=== PATIENT | female | born 1960 ===

== ENCOUNTER 2018-08-28 11:36 | Emergency (ER) | payer SELFPAY ==
[2018-08-28 11:39] VITALS: RESP 18
--- NOTE | 2018-08-28 13:32 | C.PDOC ---
History Of Present Illness 58 y/o female comes in to ED stating that she tripped on tile and fell, landing on her left side and hit her head around 10am on her way to [place]. She complains of left-sided neck pain and hip pain, and denies LOC. Patient reports that her neighbor helped her up and that she hasnt taken any medications for the pain. She mostly complains of neck pain and hip pain. Otherwise she denies any other injuries. Time Seen by Provider: 08/28/18 13:05 Chief Complaint (Nursing): Lower Extremity Problem/Injury History Per: Patient History/Exam Limitations: no limitations Onset/Duration Of Symptoms: Hrs Current Symptoms Are (Timing): Still Present Past Medical History Reviewed: Historical Data, Nursing Documentation, Vital Signs Vital Signs: Last Vital Signs Temp 97.3 F L 08/28/18 11:38 Pulse 69 08/28/18 11:38 Resp 18 08/28/18 11:38 BP 169/80 H 08/28/18 11:38 Pulse Ox 99 08/28/18 11:38 - Medical History PMH: Diabetes, HTN Family History: States: No Known Family Hx - Social History Hx Tobacco Use: No Hx Alcohol Use: No Hx Substance Use: No - Immunization History Hx Tetanus Toxoid Vaccination: No Hx Influenza Vaccination: Yes Hx Pneumococcal Vaccination: No Review Of Systems Constitutional: Negative for: Fever, Chills Cardiovascular: Negative for: Chest Pain Respiratory: Negative for: Shortness of Breath Musculoskeletal: Positive for: Neck Pain, Other (Hip Pain). Negative for: Back Pain Neurological: Negative for: Weakness, Numbness Physical Exam - Physical Exam Appears: Non-toxic, No Acute Distress Skin: Warm, Dry Head: Atraumatic, Normacephalic Eye(s): bilateral: Normal Inspection Oral Mucosa: Moist Neck: No Midline Cervical Tenderness, Paracervical Tenderness (to left side), Other (Left lateral neck tenderness) Cardiovascular: Rhythm Regular, No Murmur Respiratory: Normal Breath Sounds, No Rales, No Rhonchi, No Wheezing Gastrointestinal/Abdominal: Soft, No Tenderness Back: No Vertebral Tenderness Extremity: Tenderness (to left hip) Extremity: Bilateral: Normal Color And Temperature, Normal ROM Neurological/Psych: Oriented x3, Normal Speech ED Course And Treatment O2 Sat by Pulse Oximetry: 99 (RA) Pulse Ox Interpretation: Normal - Other Rad Hip/Pelvis XR X-Ray: Read By Radiologist Interpretation: FINDINGS: BONES: Normal. No fracture. JOINTS: Normal. SOFT TISSUES: Normal. OTHER FINDINGS: None. IMPRESSION: No evidence of acute fracture or dislocation. Medical Decision Making Medical Decision Making: Plan: --Hip XR --Tylenol PO 1515 no fx noted on hip xray. pt feeling better after tylenol. will d/c with analgesic with pmd f/u Disposition Counseled Patient/Family Regarding: Studies Performed, Diagnosis, Need For Followup, Rx Given - Disposition Referrals: Javi Spencer MD [Staff Provider] - Disposition: HOME/ ROUTINE Disposition Time: 15:19 Condition: IMPROVED Additional Instructions: Use zapatos de apoyo. Gracie un seguimiento con el Dr. Spencer en 1-2 cook. [place] T ylenol o Motrin para el dolor. Regrese a la jason de emergencias para max si hay sntomas peores. Wear supportive shoes. Follow up with Dr Spencer in 1-2 days. Take Tylenol or Motrin for pain. Return to ER for any worse symptoms. Prescriptions: Acetaminophen [Tylenol 325mg tab] 650 mg PO Q4 #50 tab Forms: Gen Discharge Inst Malay, [employer] (Malay) Print Language: FINNISH - Clinical Impression Clinical Impression: Left hip pain, Fall from slip, trip, or stumble - PA / FRONT OFFICE DIRECTOR / Resident Statement MD/DO has reviewed & agrees with the documentation as recorded. - Scribe Statement The provider has reviewed the documentation as recorded by the Scribe Latrice Abraham All medical record entries made by the Scribe were at my direction and personally dictated by me. I have reviewed the chart and agree that the record a ccurately reflects my personal performance of the history, physical exam, medical decision making, and the department course for this patient. I have also personally directed, reviewed, and agree with the discharge instructions and disposition.
[2018-08-28 15:09] VITALS: BP 122/76; PULSE 66; TEMP 97.2
[2018-08-28 15:21] VITALS: O2SAT 99
--- NOTE | 2018-08-28 17:21 | RAD ---
PROCEDURE: Left Hip X-ray Radiographs. HISTORY: s/p fall COMPARISON: None. FINDINGS: BONES: Normal. No fracture. JOINTS: Normal. SOFT TISSUES: Normal. OTHER FINDINGS: None. IMPRESSION: No evidence of acute fracture or dislocation.
== END 2018-08-28 15:30 | disposition home or self-care (01) ==
LOC: C.ER 11:36
DX: M25.552 Pain in left hip (principal); W01.0XXA Fall on same level from slipping, tripping and stumbling without subsequent striking against object, initial encounter; E11.9 Type 2 diabetes mellitus without complications; I10 Essential (primary) hypertension